=== PATIENT | male | born 1970 | race Caucasian/White ===

== ENCOUNTER 2017-06-07 10:16 | Day surgery (SDC) | payer BC ==
[~2017-06-07 10:16] MED LIST: Bupivacaine 0.25%/EPINEPHrine 1:200,000 10 ML SDV ONE; Lactated Ringers 1,000 ML IV SCH; ceFAZolin 2 GM in Premix Bag 1 BAG IV ONE
[2017-06-07] MEDS ORDERED: Ondansetron 4 MG/2 ML SDV ONE (11:29)
[2017-06-07] MEDS ORDERED: Succinylcholine/Normal Saline 200 MG/10 ML Syringe ONE (11:29)
[2017-06-07] MEDS ORDERED: Midazolam 1 MG/ML 2 ML SDV ONE (11:29)
[2017-06-07] MEDS ORDERED: Propofol 200 MG/20 ML SDV ONE (11:29)
[2017-06-07] MEDS ORDERED: fentaNYL 250 MCG/5 ML SDV ONE (11:29)
[2017-06-07] MEDS ORDERED: Lidocaine 2% 5 ML SDV ONE (11:29)
[2017-06-07] MEDS ORDERED: Acetaminophen/oxyCODONE 325-10 MG Tab PO ONE ×2 (11:46→14:20)
--- NOTE | 2017-06-07 11:48 | PCM.PREANE ---
Preanesthetic Assessment - Anesthesia/Transfusion/Family Hx Anesthesia History: Prior Anesthesia Without Reaction Family History of Anesthesia Reaction: No Transfusion History: No Prior Transfusion(s) Intubation History: Unknown - Review of Systems General: No Symptoms Pulmonary: No Symptoms Cardiovascular: No Symptoms Gastrointestinal: No Symptoms Neurological: No Symptoms Other: Reports: None - Physical Assessment O2 Sat by Pulse Oximetry: 99 Respiratory Rate: 16 Vital Signs: Last Vital Signs Temp 36.5 C 06/07/17 10:48 Pulse 84 06/07/17 10:48 Resp 16 06/07/17 10:48 BP 126/70 06/07/17 10:48 Pulse Ox 99 06/07/17 10:48 Height: 1.83 m Weight: 129.727 kg ASA Class: 2 Mental Status: Alert & Oriented x3 Airway Class: Mallampati = 2 Dentition: Reports: Normal Dentition, Broken Tooth/Teeth (small chip front upper tooth) Thyro-Mental Finger Breadths: 3 Mouth Opening Finger Breadths: 3 ROM/Head Extension: Full Lungs: Clear to Auscultation, Normal Respiratory Effort Cardiovascular: Regular Rate, Regular Rhythm - Allergies Allergies/Adverse Reactions: Allergies Allergy/AdvReac Type Severity Reaction Status Date / Time No Known Allergies Allergy Verified 12/10/15 11:22 - Blood Blood Available: No - Anesthesia Plan Pre-Op Medication Ordered: None - Acknowledgements Anesthesia Type Planned: General Anesthesia Pt an Appropriate Candidate for the Planned Anesthesia: Yes Alternatives and Risks of Anesthesia Discussed w Pt/Guardian: Yes Pt/Guardian Understands and Agrees with Anesthesia Plan: Yes PreAnesthesia Questionnaire - Past Health History Medical/Surgical History: Denies Medical/Surgical History HEENT History: Reports: None Cardiovascular History: Reports: None Respiratory History: Reports: None Gastrointestinal History: Reports: GERD Other Gastrointestinal History: hx biliary pancreatitis, pancreas divisum Genitourinary History: Reports: None Musculoskeletal History: Reports: Fracture Neurological History: Reports: None, Other (See Below) (h/o migranes) Psychiatric History: Reports: None Endocrine/Metabolic History: Reports: Obesity/BMI 30+ Hematologic History: Reports: None Immunologic History: Reports: None Oncologic (Cancer) History: Reports: None Dermatologic History: Reports: None - Infectious Disease History Infectious Disease History: Reports: Chicken Pox - Past Surgical History Head Surgeries/Procedures: Reports: None HEENT Surgical History: Reports: Oral Surgery GI Surgical History: Reports: Appendectomy, Cholecystectomy Male Surgical History: Reports: Vasectomy Musculoskeletal Surgical History: Reports: Other (See Below) Other Musculoskeletal Surgeries/Procedures:: Left arm fx with surgical repair - SUBSTANCE USE Smoking Status *Q: Former Smoker (quit 08/20) Tobacco Use Within Last Twelve Months: Cigarettes Second Hand Smoke Exposure: Yes Recreational Drug Use History: No - HOME MEDS Home Medications: Home Meds Omeprazole 40 mg PO DAILY 06/04/17 [History] - CURRENT (IN HOUSE) MEDS Current Meds: Current Medications Lactated Ringer's (Ringers, Lactated) 1,000 mls @ 125 mls/hr IV ASDIRECTED LESLIE Last Admin: 06/07/17 10:53 Dose: 125 mls/hr Discontinued Medications Bupivacaine HCl/Epinephrine Bitart (Marcaine 0.25%/Epinephrine 1:200,000) Confirm Administered Dose 20 ml .ROUTE .STK-MED ONE Stop: 06/07/17 07:29 Bupivacaine HCl/Epinephrine Bitart (Marcaine 0.25%/Epinephrine 1:200,000) Confirm Administered Dose 10 ml .ROUTE .STK-MED ONE Stop: 06/07/17 07:30 Fentanyl (Sublimaze) Confirm Administered Dose 250 mcg .ROUTE .STK-MED ONE Stop: 06/07/17 11:30 Cefazolin Sodium/Dextrose 2 gm (/ Premix) 50 mls @ 100 mls/hr IV ONETIME ONE Stop: 06/07/17 05:29 Lidocaine (Xylocaine-Mpf 2%) Confirm Administered Dose 5 ml .ROUTE .STK-MED ONE Stop: 06/07/17 11:30 Midazolam HCl (Versed 1 Mg/Ml) Confirm Administered Dose 2 mg .ROUTE .STK-MED ONE Stop: 06/07/17 11:30 Ondansetron HCl (Zofran) Confirm Administered Dose 4 mg .ROUTE .STK-MED ONE Stop: 06/07/17 11:30 Propofol (Diprivan 20 Ml) Confirm Administered Dose 200 mg .ROUTE .STK-MED ONE Stop: 06/07/17 11:30 Rocuronium [place] (Zemuron) Confirm Administered Dose 50 mg .ROUTE .STK-MED ONE Stop: 06/07/17 11:30 Succinylcholine Chloride (Succinylcholine In Ns Pf) Confirm Administered Dose 200 mg .ROUTE .STK-MED ONE Stop: 06/07/17 11:30
[2017-06-07] MEDS ORDERED: Octyl 2-Cyanoacrylate 1 Tube ONE (11:51)
[2017-06-07] MEDS ORDERED: HYDROmorphone 2 MG/ML Syringe ONE (12:21)
[2017-06-07] MEDS ORDERED: Dexamethasone 4 MG/ML 5 ML MDV ONE (12:26)
[2017-06-07] MEDS ORDERED: Albuterol 6.7 GM Inhaler INH ONE (12:40)
[2017-06-07] MEDS ORDERED: Neostigmine Methylsulfate 1 MG/ML 5 ML Syringe ONE (12:41)
--- NOTE | 2017-06-07 13:30 | PCM.OPNOTE ---
- General Post-Op/Procedure Note Date of Surgery/Procedure: 06/07/17 Operative Procedure(s): incarcerated incisional hernia rep, no mesh Findings: fascia defect of 2 cm, repair primary, no mesh used; [id number] Pre Op Diagnosis: incarcerated incisional hernia Post-Op Diagnosis: Same Anesthesia Technique: General ET Tube Primary Surgeon: Krzysztof Vaz Pathology: sent Complications: None Condition: Good
[2017-06-07 14:49] VITALS: BP 128/74
--- NOTE | 2017-06-07 15:37 | OR ---
SURGEON: Krzysztof Vaz MD DATE OF PROCEDURE: 06/07/2017 PREOPERATIVE DIAGNOSIS: Incarcerated incisional hernia. POSTOPERATIVE DIAGNOSIS: Incarcerated incisional hernia. PROCEDURE PERFORMED: Hernia repair. COMPLICATIONS: None. FINDINGS: A small hernia with a large sac and fascial defect is 2 cm and repair primary, no mesh used. DESCRIPTION OF PROCEDURE: The patient was taken to the operating room and placed in supine position. Upon induction of general endotracheal anesthesia, the patient's abdomen was prepped and draped in a sterile fashion. Time-out had been called, patient identified, procedure identified, antibiotic identified. Procedure was then started. Ioban was applied prophylactically. After assessment of appropriate landmark, a vertical incision beveled to the right of the umbilicus was made and carried deep down to expose the hernia sac and this was opened there was omentum pushed back in the peritoneal cavity, measured the dimension of the fascial defect as 2 cm, and considering the patient little bit on the heavy side, but he has very good fascia decided not to use mesh and closed primarily using 0 Ethibond, simple interrupted and followed with irrigation. Hemostasis was achieved by use of electrocautery, and the skin was approximated by use of 4-0 Monocryl and followed with Dermabond. The patient was awakened, extubated, and transferred to recovery room in hemodynamically stable condition. The patient tolerated the procedure well. There were no intraoperative complications. Dr. Vaz was present throughout the whole procedure. Abdominal binder was applied prior to moved to recovery room and wake up slowly. VIVIAN / BREEZY /[id number] DALIA
== END 2017-06-07 15:23 | disposition home or self-care (01) ==
LOC: MW.SDS 10:16
PROVIDERS: ATTEND Surgery
PROC: 0WQF0ZZ Repair Abdominal Wall, Open Approach (ICD-10-PCS; principal; 2017-06-07)
DX: K43.0 Incisional hernia with obstruction, without gangrene (principal); G43.909 Migraine, unspecified, not intractable, without status migrainosus; E66.9 Obesity, unspecified; K21.9 Gastro-esophageal reflux disease without esophagitis; Z87.891 Personal history of nicotine dependence; Z79.899 Other long term (current) drug therapy; Z98.52 Vasectomy status; Z90.49 Acquired absence of other specified parts of digestive tract; Z98.890 Other specified postprocedural states; Z68.36 Body mass index [BMI] 36.0-36.9, adult
CPT/HCPCS: 49561; A9270; J1100; J1170; J2250; J2405; J3010; J7120; 00832; 88302; J2704

== ENCOUNTER 2018-07-27 09:21 | Emergency (ER) | payer BC ==
--- NOTE | 2018-07-27 09:34 | EDM.PDOC ---
ED HPI GENERAL MEDICAL PROBLEM - General Chief Complaint: ENT Problem Stated Complaint: SINUS INFECTION, JAW PAIN Time Seen by Provider: 07/27/18 09:33 Source of Information: Reports: Patient History Limitations: Reports: No Limitations - History of Present Illness INITIAL COMMENTS - FREE TEXT/NARRATIVE: HISTORY AND PHYSICAL: History of present illness: 48-year-old male presenting to emergency department with chief complaint of left upper jaw pain 2 days. Patient states that ever since he had a root canal to his left upper tooth he has had problems with sinus issues. States that whenever he gets a sinus infection he begins to have left maxillary sinus pain secondary to what he describes as a cyst pocket from the root canal. Approximately 2 weeks ago he began to have some sinus congestion. He's been using [id number] decongestants as well as Afrin occasionally. Approximately 2 days ago sinus congestion worsened and he began to have left upper maxillary/jaw pain. He denied any associated fever, chills, nausea, vomiting, abdominal pain, or diarrhea. Otherwise he is generally healthy. Current pain is 8 out of 10. Currently denies any chest pain, palpitations, shortness of breath, syncopal episodes, or focal neurologic deficits. On exam there is a dental crown on tooth #14 with surrounding gum erythema and mild swelling. Patient is tender to palpation along the left maxillary sinus as well as TMJ area. No mastoid or numbness. No difficulty with speech or breathing. Review of systems: As per history of present illness and below otherwise all systems reviewed and negative. Past medical history: As per history of present illness and as reviewed below otherwise noncontributory. Surgical history: As per history of present illness and as reviewed below otherwise noncontributory. Social history: No reported history of drug or alcohol abuse. Family history: As per history of present illness and as reviewed below otherwise noncontributory. Physical exam: See above H&P HEENT: Atraumatic, normocephalic, pupils reactive, negative for conjunctival pallor or scleral icterus, mucous membranes moist, throat clear, neck supple, nontender, trachea midline. Lungs: Clear to auscultation, breath sounds equal bilaterally, chest nontender. Heart: S1S2, regular, negative for clicks, rubs, or JVD. Abdomen: Soft, nondistended, nontender. Negative for masses or hepatosplenomegaly. Negative for costovertebral tenderness. Pelvis: Stable nontender. Genitourinary: Deferred. Rectal: Deferred. Extremities: Atraumatic, negative for cords or calf pain. Neurovascular unremarkable. Neuro: Awake, alert, oriented. Cranial nerves II through XII unremarkable. Cerebellum unremarkable. Motor and sensory unremarkable throughout. Exam nonfocal. Diagnostics: [] Therapeutics: Toradol 60 mg IM 1, Augmentin 875 mg by mouth twice a day 10 days, dental balls Impression: Dental abscess Maxillary pain Plan: Patient was much improved after Toradol and was given a prescription for antibiotic, Augmentin. He was also given dental balls and instructed to follow- up with his dentist. For his sinus congestion he was instructed to use Flonase and Afrin maximum 4 days at length with also use of Missy pot. Patient was discharged in good condition with instructions to return to emergency department if any new or worsening symptoms. Definitive disposition and diagnosis as appropriate pending reevaluation and review of above. - Related Data Allergies Allergy/AdvReac Type Severity Reaction Status Date / Time No Known Allergies Allergy Verified 12/10/15 11:22 Home Meds: Home Meds Omeprazole 40 mg PO DAILY PRN 06/04/17 [History] Past Medical History - Past Health History Medical/Surgical History: Denies Medical/Surgical History HEENT History: Reports: None Cardiovascular History: Reports: None Respiratory History: Reports: None Gastrointestinal History: Reports: GERD Other Gastrointestinal History: hx biliary pancreatitis, pancreas divisum Genitourinary History: Reports: None Musculoskeletal History: Reports: Fracture Neurological History: Reports: None, Other (See Below) (h/o migranes) Psychiatric History: Reports: None Endocrine/Metabolic History: Reports: Obesity/BMI 30+ Hematologic History: Reports: None Immunologic History: Reports: None Oncologic (Cancer) History: Reports: None Dermatologic History: Reports: None - Infectious Disease History Infectious Disease History: Reports: Chicken Pox - Past Surgical History Head Surgeries/Procedures: Reports: None HEENT Surgical History: Reports: Oral Surgery GI Surgical History: Reports: Appendectomy, Cholecystectomy Male Surgical History: Reports: Vasectomy Musculoskeletal Surgical History: Reports: Other (See Below) Other Musculoskeletal Surgeries/Procedures:: Left arm fx with surgical repair Social & Family History - Family History Family Medical History: Noncontributory - Caffeine Use Caffeine Use: Reports: Soda Other Caffeine Use: Diet Coke ED [facility] GENERAL - Review of Systems Review Of Systems: ROS reveals no pertinent complaints other than HPI. ED EXAM, GENERAL - Physical Exam Exam: See Below Course - Vital Signs Last Recorded V/S: Last Vital Signs Temp 97.0 F 07/27/18 09:34 Pulse 69 07/27/18 09:34 Resp 18 07/27/18 09:34 BP 172/97 H 07/27/18 09:34 Pulse Ox 97 07/27/18 09:34 - Orders/Labs/Meds Meds: Medications Discontinued Medications Generic Name Dose Route Start Last Admin Trade Name Fremary lou PRN Reason Stop Dose Admin Benzocaine 2 each 07/27/18 09:50 Hurricaine One 20% MUCMEM 07/27/18 09:51 ONETIME ONE Ketorolac Tromethamine 60 mg 07/27/18 09:50 Toradol IM 07/27/18 09:51 ONETIME ONE Lidocaine HCl 15 ml 07/27/18 09:50 Xylocaine 2% Viscous PO 07/27/18 09:51 ONETIME ONE Departure - Departure Time of Disposition: 10:07 Disposition: Home, Self-Care 01 Condition: Good Clinical Impression: Dental abscess, Sinus pain - Discharge Information Referrals: PCP,None [Primary Care Provider] - Forms: ED Department Discharge Additional Instructions: My general discharge The following information is given to patients seen in the emergency department who are being discharged to home. This information is to outline your options for follow-up care. We provide all patients seen in our emergency department with a follow-up referral. The need for follow-up, as well as the timing and circumstances, are variable depending upon the specifics of your emergency department visit. If you don't have a primary care physician on staff, we will provide you with a referral. We always advise you to contact your personal physician following an emergency department visit to inform them of the circumstance of the visit and for follow-up with them and/or the need for any referrals to a consulting specialist. The emergency department will also refer you to a specialist when appropriate. This referral assures that you have the opportunity for follow-up care with a specialist. All of these measure are taken in an effort to provide you with optimal care, which includes your follow-up. Under all circumstances we always encourage you to contact your private physician who remains a resource for coordinating your care. When calling for follow-up care, please make the office aware that this follow-up is from your recent emergency room visit. If for any reason you are refused follow-up, please contact the [facility] Emergency Department at and asked to speak to the emergency department charge nurse. [facility] [address] [place] [id number] [facility] [address] [place] [id number] Please follow-up with your dentist as you have been doing. Take medication as prescribed. Return to emergency department if any new or worsening symptoms.
[2018-07-27 09:35] VITALS: BP 172/97
[2018-07-27] MEDS ORDERED: Lidocaine 2% Viscous Solution 15 ML Cup PO ONE (09:50)
[2018-07-27] MEDS ORDERED: Benzocaine 20% Topical Spray UD MUCMEM ONE (09:50)
[2018-07-27] MEDS ORDERED: Ketorolac 60 MG/2 ML SDV IM ONE (09:50)
== END 2018-07-27 10:29 | disposition home or self-care (01) ==
LOC: MW.ED 09:21
DX: K04.7 Periapical abscess without sinus (principal); K21.9 Gastro-esophageal reflux disease without esophagitis; Z79.899 Other long term (current) drug therapy
CPT/HCPCS: 96372; 99282; A9270; J1885

== ENCOUNTER 2019-11-02 07:05 | Emergency (ER) | payer BC ==
[2019-11-02] MEDS ORDERED: Ibuprofen 800 MG Tab PO ONE (07:43)
--- NOTE | 2019-11-02 07:47 | EDM.PDOC ---
ED HPI GENERAL MEDICAL PROBLEM - General Chief Complaint: ENT Problem Stated Complaint: SORE THROAT Time Seen by Provider: 11/02/19 07:45 - History of Present Illness INITIAL COMMENTS - FREE TEXT/NARRATIVE: HPI 49-year-old obese male presents for evaluation of ~3 days of scratchy sore throat, infrequent, mild nonproductive cough, and mild R>L ear discomfort. No headaches, changes in vision or hearing, neck stiffness, difficulty swallowing, fevers, chills, has been taking OTC medications without adequate relief. M/S/F/SocHx notable for: please see HPI; remainder reviewed with patient and in chart. ROS: Negative constitutional, eye, cardiovascular, pulmonary, GI, , MSK, skin , neurologic, psychiatric, endocrine unless noted in the HPI. Exam HR 110, RR 16, BP 155/96, T 36.1C, SaO2 96% on room air. Gen: Pleasant, non-toxic appearing, resting comfortably. HEENT: Normocephalic, atraumatic. * Ears - TMs with scant serous effusions bilaterally, bilateral external auditory canals without erythema, inflammation, or swelling, bilateral mastoids nontender without overlying erythema, swelling, or warmth. * Eyes - Bilateral eyes without injection, swelling, or discharge, no proptosis or periorbital erythema, swelling, warmth, or tenderness. * Mouth - Anterior oropharynx with MMM, no lesions appreciated, floor of the mouth is soft and without swelling. Posterior oropharynx without swelling, exudate, erythema, lesions, or post-nasal drip, uvula midline. * Nose - Nares without crusting or discharge. * Neck - Neck supple without posterior or anterior cervical chain lymphadenopathy bilaterally. Resp: Clear to auscultation bilaterally, normal work of breathing without accessory muscle usage. Card: Regular rate and rhythm with no murmurs, rubs or gallops. Extremities warm and well perfused. GI: Non-tender to palpation throughout all quadrants, no masses or organomegaly appreciated. : Deferred MSK: No visible deformities, strength and tone without visually appreciable deficit. Neuro: alert and oriented 3, no facial asymmetry, vision and hearing WNL. Heme/Lymph: Deferred Skin: Normal color with no visible lesions (other than noted above). Psych: Mood and affect appropriate. Labs / Imaging (pertinent): rapid strep negative. MDM Previous chart, nursing note, labs, imaging, and vitals reviewed. A: 49-year-old obese male presents for evaluation of ~3 days of scratchy sore throat, infrequent, mild nonproductive cough, and mild R>L ear discomfort. DDx: pharyngitis (HSV vs viral NOS vs GAS vs gonoccocal vs bacterial NOS)], EBV , HIV, candidiasis, sinusitis (bacterial, viral)[, peritonsillar cellulitis, BANQUET CHEF , RPA, Claude's angina, epiglottitis. Evaluation: [overall symptom constellation is most strongly consistent with a viral upper respiratory tract infection,, rapid strep negative, no identifiable sexual history features for gonococcal pharyngitis, oral mucosa without lesions consistent with HSV or candidiasis, doubt bacterial sinusitis given duration of symptoms, low suspicion for peritonsillar cellulitis or abscess given the absence of asymmetric swelling or uvular deviation, RPA is unlikely as the patient can comfortably flex and extend their neck and swallow without difficulty. As phonation is intact and breathing is unlabored doubt epiglottitis. The floor of the mouth is without evidence of Claude's angina. Lemierre's disease was considered but as the patient does not have signs of BANQUET CHEF or sepsis, further evaluation was not indicated. ED Course: No clinically significant changes. Patient given 10 mg dexamethasone PO and ibuprofen 800 mg. Disposition: Discharge with return to care as needed. Return to care indications provided. Impression: Pharyngitis (please reference below for remainder of encounter information) - Related Data Allergies Allergy/AdvReac Type Severity Reaction Status Date / Time No Known Allergies Allergy Verified 11/02/19 07:41 Home Meds: Home Meds Omeprazole 40 mg PO DAILY PRN 06/04/17 [History] Past Medical History - Past Health History Medical/Surgical History: Denies Medical/Surgical History HEENT History: Reports: None Cardiovascular History: Reports: None Respiratory History: Reports: None Gastrointestinal History: Reports: GERD Other Gastrointestinal History: hx biliary pancreatitis, pancreas divisum Genitourinary History: Reports: None Musculoskeletal History: Reports: Fracture Neurological History: Reports: None, Other (See Below) Psychiatric History: Reports: None Endocrine/Metabolic History: Reports: Obesity/BMI 30+ Hematologic History: Reports: None Immunologic History: Reports: None Oncologic (Cancer) History: Reports: None Dermatologic History: Reports: None - Infectious Disease History Infectious Disease History: Reports: Chicken Pox - Past Surgical History Head Surgeries/Procedures: Reports: None HEENT Surgical History: Reports: Oral Surgery GI Surgical History: Reports: Appendectomy, Cholecystectomy Male Surgical History: Reports: Vasectomy Musculoskeletal Surgical History: Reports: Other (See Below) Other Musculoskeletal Surgeries/Procedures:: Left arm fx with surgical repair Social & Family History - Family History Family Medical History: Noncontributory - Tobacco Use Smoking Status *Q: Never Smoker - Caffeine Use Caffeine Use: Reports: None Other Caffeine Use: Diet Coke - Recreational Drug Use Recreational Drug Use: No ED ROS GENERAL - Review of Systems Review Of Systems: See Below ED EXAM GENERAL W FULL EYE - Physical Exam Exam: See Below Course - Vital Signs Last Recorded V/S: Last Vital Signs Temp 36.1 C 11/02/19 07:15 Pulse 110 H 11/02/19 07:15 Resp 16 11/02/19 07:15 BP 155/96 H 11/02/19 07:15 Pulse Ox 96 11/02/19 07:15 - Orders/Labs/Meds Orders: Active Orders 24 hr Category Date Time Status Communication Order [RC] STAT Care 11/02/19 07:43 Ordered CULTURE STREP A CONFIRMATION [] Stat Lab 11/02/19 07:13 Results STREP SCRN A RAPID W CULT CONF [] Stat Lab 11/02/19 07:13 Results dexAMETHasone Med 11/02/19 07:45 Once 10 mg PO ONETIME ONE Medication Orders Dexamethasone (Dexamethasone) 10 mg PO ONETIME ONE Stop: 11/02/19 07:46 Meds: Medications Generic Name Dose Route Start Last Admin Trade Name Freq PRN Reason Stop Dose Admin Dexamethasone 10 mg 11/02/19 07:45 Dexamethasone PO 11/02/19 07:46 ONETIME ONE Discontinued Medications Generic Name Dose Route Start Last Admin Trade Name Freq PRN Reason Stop Dose Admin Ibuprofen 800 mg 11/02/19 07:43 Motrin PO 11/02/19 07:44 ONETIME ONE Departure - Departure Time of Disposition: 07:46 Disposition: Home, Self-Care 01 Clinical Impression: Pharyngitis - Discharge Information Referrals: PCP,None [Primary Care Provider] - Additional Instructions: You were in seen in the [facility] Emergency Department for evaluation of sore throat, ear discomfort, and an infrequent cough. Your believed to have a upper respiratory tract infection, this is likely viral. Your strep screen was negative. Please read and follow all of the instructions below. Please follow up with your primary care physician within 48 hours for repeat evaluation of your asymptomatic hypertension. When calling for follow-up care, please make the office aware that this follow-up is from your recent emergency room visit. If for any reason you are refused follow-up, please contact the [facility] Emergency Department at and asked to speak to the emergency department charge nurse. Your care today was limited to identifying and treating emergent medical problems only. Many people have subtle differences in their test results that require follow up with their outpatient physician(s) to correctly determine if this represents a normal variation or concerning abnormality with respect to your specific health. The care given to you today was limited to identifying and treating emergent medical problems - you need to request a copy of all of your medical records from today's visit and follow up with your outpatient physician(s) to review both today's visit and your overall health. If you have any new symptoms or if you are at all concerned about your health please return immediately to the emergency department. Prescriptions: If you are uninsured or have financial difficulties with filling your prescription(s), you may consider using a free pharmacy discount service such as [employer] ([employer]) or [employer] ([employer]). These services allow you to search for a medication on your phone (or computer) and obtain a coupon that usually has a significant discount from the list piedra at a pharmacy. Your physician as well as [facility] does not have a financial relationship with either of these services. You may also wish to speak with your physician to determine if lower cost prescriptions are possible. Obtaining primary care: 1. [facility] provides pediatrics (children), family medicine (children, adults, and some obstetrical care), and internal medicine (adults). Further specialty care is also available. Same day appointments are available. They may be contacted at [phone] and are open Sunday through Sunday 8 AM to 5 PM[address] [facility] are located at [facility], [address], [place] [address]. 2. [facility] offers family medicine, internal medicine, women health, and further specialty care. [facility] may be contacted at [phone]. [facility] [address] [address]. 3. If you have health insurance, please also contact your insurer for a list of accepting providers under your policy, you may contact these providers for further health care. Occupational health: Work related injuries may consider following up with [facility], . Occupational health services are located at [address] [place] [address] and are open Sunday through Sunday from 7: 30 am to 5:00 pm. Obstetrical and Gynecological Care: [facility], , Sunday through Sunday 8 AM to 5 PM. [address] [place] [address]. Eyecare: If you have an eye injury you should follow up with your safety clothing and equipment developer or with [facility], at [phone] or [phone] , they are located at [address] [place] [address]. Pharyngitis You have a severe sore throat caused by a viral or bacterial infection. These infections usually get better in 4-7 days with supportive care. You may use the following to reduce your pain: Ibuprofen 600 mg every 6-8 hours. Acetaminophen 1,000 mg every 6 hours. Over the counter throat lozenges. Warm liquids with honey may help. Please return to the emergency department if you develop any of the following: Difficulty swallowing One tonsil that is much larger than the other. Pain on flexing your neck or difficulty bending your neck Swelling below your tongue Rash Red or brown urine High fevers or chills If you are otherwise concerned about your health Please call your primary care physician if you are not feeling much better in 4 days. You make take over the counter Acetaminophen (Tylenol) and Ibuprofen (Motrin or Aleve) as directed below for relief of pain. Take 600 mg of ibuprofen (three 200 mg tablets) with a glass of water every 6-8 hours as needed for pain or fever. Do not take if you have ulcers, GI bleeding, are , or are allergic to ibuprofen. Take 1,000 mg of acetaminophen (two 500 mg tablets) with a glass of water every 6-8 hours as needed for pain. Do not take if you are allergic to acetaminophen. If you have liver disease, please reduce your dose to a maximum of 2,000 mg per day. You can take these medications at the same time or on separate schedules. Do not take for more than 10 days. Do not take with alcohol or other acetaminophen containing medications. This medication may cause a mildly upset stomach, if so take it with a small snack. Stop taking it if you have persistent abdominal pain, heartburn, or any stomach pain. Do not take this medication if you have known ulcers. Please read the warnings at the end of this document regarding these medications. IBUPROFEN WARNING: This drug may infrequently cause serious (rarely fatal) bleeding from the stomach or intestines. Also, related drugs rarely have caused blood clots to form, resulting in heart attacks and strokes. This medication might also rarely cause similar problems. Talk to your doctor or pharmacist about the benefits and risks of treatment, as well as other possible medication choices. If you notice any of the following rare but very serious side effects, stop taking ibuprofen and seek immediate medical attention: black stools, persistent stomach/abdominal pain, vomit that looks like coffee grounds, chest pain, weakness on one side of the body, sudden vision changes, slurred speech. IBUPROFEN SIDE EFFECTS: Upset stomach, nausea, vomiting, heartburn, headache, diarrhea, constipation, drowsiness, and dizziness may occur. If any of these effects persist or worsen, notify your doctor or pharmacist promptly. If your doctor has directed you to use this medication, remember that he or she has judged that the benefit to you is greater than the risk of side effects. Many people using this medication do not have serious side effects. Tell your doctor immediately if any of these serious side effects occur: stomach pain, swelling of the hands or feet, sudden or unexplained weight gain, ringing in the ears ( tinnitus). Tell your doctor immediately if any of these unlikely but serious side effects occur: vision changes, rapid or pounding heartbeat, easy bruising or bleeding, difficult/painful swallowing. Tell your doctor immediately if any of these highly unlikely but very serious side effects occur: change in amount of urine, severe headache, very stiff neck, mental/mood changes, persistent sore throat or fever. This drug may rarely cause serious (possibly fatal) liver disease. If you notice any of the following highly unlikely but very serious side effects, stop taking ibuprofen and consult your doctor or pharmacist immediately: yellowing eyes and skin, dark urine, unusual/extreme tiredness. An allergic reaction to this drug is unlikely, but seek immediate medical attention if it occurs. Symptoms of an allergic reaction include: rash, itching/ swelling (especially of the face/tongue/throat), severe dizziness, trouble breathing. This is not a complete list of possible side effects. ACETAMINOPHEN SIDE EFFECTS: This drug usually has no side effects. If you do not have liver problems, the maximum dose of acetaminophen for adults is 4 grams per day (4000 milligrams). Taking more than the maximum daily amount may cause serious (possibly fatal) liver damage. Get medical help right away if you have any of the following symptoms of liver damage: persistent nausea/vomiting, extreme tiredness, stomach/abdominal pain, yellowing eyes/skin, dark urine. If you have liver problems, consult your doctor or pharmacist for a safe dosage of this medication. A very serious allergic reaction to this drug is rare. However , get medical help right away if you notice any symptoms of a serious allergic reaction, including: rash, itching/swelling (especially of the face/tongue/ throat), severe dizziness, trouble breathing. This is not a complete list of possible side effects. If you notice other effects not listed above, contact your doctor or pharmacist. DRUG INTERACTIONS: Your healthcare professionals (e.g., doctor or pharmacist) may already be aware of any possible drug interactions and may be monitoring you for it. Do not start, stop or change the dosage of any medicine before checking with them first. This drug should not be used with the following medications because very serious interactions may occur: cidofovir, ketorolac. If you are currently using any of these medications listed above, tell your doctor or pharmacist before starting ibuprofen. Before using this medication, tell your doctor or pharmacist of all prescription and nonprescription/herbal products you may use, especially of: anti-platelet drugs (e.g., cilostazol, clopidogrel), oral bisphosphonates (e.g., alendronate), other medications for arthritis (e.g., aspirin, methotrexate), "blood thinners" (e.g., enoxaparin, heparin, warfarin), corticosteroids (e.g., prednisone), cyclosporine, desmopressin, high blood pressure drugs (including MARIO inhibitors such as captopril, angiotensin II receptor antagonists such as losartan, and beta- blockers such as metoprolol), lithium, pemetrexed, "water pills" (diuretics such as furosemide, hydrochlorothiazide, triamterene). Check all prescription and nonprescription medicine labels carefully for other pain/fever drugs ( NSAIDs such as aspirin, celecoxib, naproxen). These drugs are similar to ibuprofen, so taking one of these drugs while also taking ibuprofen may increase your risk of side effects. Consult your doctor or pharmacist for more details. However, if your doctor has prescribed low doses of aspirin to prevent heart attack or stroke (usually at dosages of 81-325 milligrams a day), you should continue to take the aspirin. Daily use of ibuprofen may decrease aspirin 's ability to prevent heart attack/stroke. Talk to your doctor about using a different medication (e.g., acetaminophen) to treat pain/fever. If you must take ibuprofen, talk to your doctor about possibly taking immediate-release aspirin (not enteric-coated) while also taking the ibuprofen dose apart from your aspirin dose. Do not increase your daily dose of aspirin or change the way you take aspirin/other medications without your doctor's approval. This document does not contain all possible interactions. Therefore, before using this product, tell your doctor or pharmacist of all the products you use. Keep a list of all your medications with you, and share the list with your doctor and pharmacist. High Blood Pressure (Hypertension) When you were in the emergency department you had an abnormally high blood pressure. High blood pressure can be without symptoms. However high blood pressure can lead to many medical problems including kidney disease, strokes, and heart attacks. Your blood pressure may have been elevated due to pain or the stress of being in the emergency department, however half of people with an elevated blood pressure in the emergency department have intermodal truck driver problems with high blood pressure. Please see your primary care physician in 2-3 days for a repeat check of your blood pressure. This may help prevent many health serious problems in the future. Please return to the emergency department if you develop any of the following: chest pain, shortness of breath, new or severe headache, changes in vision or hearing, weakness, or if you are otherwise concerned about your health. Sepsis Event Note - Evaluation Sepsis Screening Result: No Definite Risk - Focused Exam Vital Signs: Vital Signs Temp Pulse Resp BP Pulse Ox 11/02/19 07:15 36.1 C 110 H 16 155/96 H 96 Date Exam was Performed: 11/02/19 Time Exam was Performed: 07:45 - My Orders Last 24 Hours: My Active Orders 11/02/19 07:13 CULTURE STREP A CONFIRMATION [RM] Stat STREP SCRN A RAPID W CULT CONF [RM] Stat 11/02/19 07:43 Communication Order [RC] STAT 11/02/19 07:45 dexAMETHasone 10 mg PO ONETIME ONE - Assessment/Plan Last 24 Hours: My Active Orders 11/02/19 07:13 CULTURE STREP A CONFIRMATION [RM] Stat STREP SCRN A RAPID W CULT CONF [RM] Stat 11/02/19 07:43 Communication Order [RC] STAT 11/02/19 07:45 dexAMETHasone 10 mg PO ONETIME ONE
[2019-11-02] MEDS ORDERED: Dexamethasone 4 MG Tab ONE (07:48)
[2019-11-02] MEDS ORDERED: Dexamethasone 4 MG Tab PO ONE (07:52)
[2019-11-02 07:54] VITALS: BP 143/83; PULSE 104
== END 2019-11-02 07:59 | disposition home or self-care (01) ==
LOC: MW.ED 07:05
DX: J02.9 Acute pharyngitis, unspecified (principal); E66.9 Obesity, unspecified; Z68.38 Body mass index [BMI] 38.0-38.9, adult
CPT/HCPCS: 87081; 87880; 99283; A9270; J8540

== ENCOUNTER 2021-09-18 12:04 | Emergency (ER) | payer BC ==
[2021-09-18 14:43] LABS: CORONAVIRUS COVID-19 NAA NEGATIVE (NEGATIVE); INFLUENZA A NAA NEGATIVE (NEGATIVE); INFLUENZA B NAA NEGATIVE (NEGATIVE)
--- NOTE | 2021-09-18 15:35 | CR ---
Indication: Cough. Technique: PA and lateral views the chest. Comparison: None Findings: A right upper lobe infiltrate is identified. The heart is normal in size. The lungs are hyperinflated. No pleural effusion or pneumothorax is identified. Impression: Right upper lobe infiltrate Dictated by Tana Simpson MD @ 09/18/2021 3:33:54 PM (Electronically Signed)
[2021-09-18] MEDS ORDERED: Azithromycin 250 MG Tab PO STA (15:38)
--- NOTE | 2021-09-18 15:42 | EDM.PDOC ---
ED HPI GENERAL MEDICAL PROBLEM - General Chief Complaint: ENT Problem Stated Complaint: sinus pain for 6 weeks Time Seen by Provider: 09/18/21 15:20 Source of Information: Reports: Patient History Limitations: Reports: No Limitations - History of Present Illness INITIAL COMMENTS - FREE TEXT/NARRATIVE: Patient is a 51-year-old male brought in today for sinus pain for the past 6 weeks he states that he regularly gets sinus infection. He also reports a cough as well but nonproductive and has some chest tightness but not made worse or better with any events nonradiating. Patient denies any leg swelling or current shortness of breath. - Related Data Allergies Allergy/AdvReac Type Severity Reaction Status Date / Time No Known Allergies Allergy Verified 09/18/21 15:24 Home Meds: Home Meds Omeprazole 40 mg PO DAILY PRN 06/04/17 [History] Past Medical History - Past Health History Medical/Surgical History: Denies Medical/Surgical History HEENT History: Reports: None Cardiovascular History: Reports: None Respiratory History: Reports: None Gastrointestinal History: Reports: GERD Other Gastrointestinal History: hx biliary pancreatitis, pancreas divisum Genitourinary History: Reports: None Musculoskeletal History: Reports: Fracture Neurological History: Reports: None, Other (See Below) Psychiatric History: Reports: None Endocrine/Metabolic History: Reports: Obesity/BMI 30+ Hematologic History: Reports: None Immunologic History: Reports: None Oncologic (Cancer) History: Reports: None Dermatologic History: Reports: None - Infectious Disease History Infectious Disease History: Reports: Chicken Pox - Past Surgical History Head Surgeries/Procedures: Reports: None HEENT Surgical History: Reports: Oral Surgery GI Surgical History: Reports: Appendectomy, Cholecystectomy Male Surgical History: Reports: Vasectomy Musculoskeletal Surgical History: Reports: Other (See Below) Other Musculoskeletal Surgeries/Procedures:: Left arm fx with surgical repair Social & Family History - Family History Family Medical History: No Pertinent Family History - Tobacco Use Tobacco Use Status *Q: Never Tobacco User - Caffeine Use Caffeine Use: Reports: Soda Other Caffeine Use: Diet Coke - Recreational Drug Use Recreational Drug Use: No ED ROS GENERAL - Review of Systems Review Of Systems: See Below Constitutional: Reports: No Symptoms HEENT: Reports: Rhinitis Respiratory: Reports: Pleuritic Chest Pain Cardiovascular: Reports: No Symptoms Endocrine: Reports: No Symptoms GI/Abdominal: Reports: No Symptoms : Reports: No Symptoms Musculoskeletal: Reports: No Symptoms Skin: Reports: No Symptoms Neurological: Reports: No Symptoms Psychiatric: Reports: No Symptoms Hematologic/Lymphatic: Reports: No Symptoms Immunologic: Reports: No Symptoms ED EXAM, GENERAL - Physical Exam Exam: See Below Exam Limited By: No Limitations General Appearance: Alert, WD/WN, No Apparent Distress Eye Exam: Bilateral Eye: EOMI, PERRL Ears: Normal External Exam Nose: Normal Inspection Head: Atraumatic, Normocephalic Neck: Normal Inspection Respiratory/Chest: No Respiratory Distress, Lungs Clear, Normal Breath Sounds Cardiovascular: Normal Peripheral Pulses, Regular Rate, Rhythm GI/Abdominal: Normal Bowel Sounds, Soft, Non-Tender Extremities: Normal Inspection, Normal Range of Motion Neurological: Alert, Oriented, Normal Cognition, Normal Gait #1 Interpretation EKG Date: 09/18/21 Time: 15:48 Rhythm: Other (sinus tach) Rate (Beats/Min): 102 ST-T: Normal Course - Vital Signs Last Recorded V/S: Last Vital Signs Temp 98.2 F 09/18/21 15:24 Pulse 107 H 09/18/21 16:13 Resp 18 09/18/21 16:13 BP 123/75 09/18/21 16:13 Pulse Ox 94 L 09/18/21 16:13 - Orders/Labs/Meds Orders: Active Orders 24 hr Category Date Time Status EKG 12 Lead [EKG Documentation Completion] [RC] STAT Care 09/18/21 15:48 Active Labs: Laboratory Tests 09/18/21 09/18/21 09/18/21 Range/Units 13:48 15:57 15:57 WBC 10.22 (4.0-11.0) K/uL RBC 4.19 L (4.50-5.90) M/uL Hgb 12.7 L (13.0-17.0) g/dL Hct 38.4 (38.0-50.0) % MCV 91.6 (80.0-98.0) fL MCH 30.3 (27.0-32.0) pg MCHC 33.1 (31.0-37.0) g/dL RDW Std Deviation 40.9 (28.0-62.0) fl RDW Coeff of Neva 12 (11.0-15.0) % Plt Count 484 H (150-400) K/uL MPV 8.60 (7.40-12.00) fL Neut % (Auto) 73.4 (48.0-80.0) % Lymph % (Auto) 16.8 (16.0-40.0) % [place] % (Auto) 7.8 (0.0-15.0) % Eos % (Auto) 1.7 (0.0-7.0) % Baso % (Auto) 0.3 (0.0-1.5) % Neut # (Auto) 7.5 H (1.4-5.7) K/uL Lymph # (Auto) 1.7 (0.6-2.4) K/uL [place] # (Auto) 0.8 (0.0-0.8) K/uL Eos # (Auto) 0.2 (0.0-0.7) K/uL Baso # (Auto) 0.0 (0.0-0.1) K/uL Nucleated RBC % 0.0 /100WBC Nucleated RBCs # 0 K/uL Sodium 134 L (136-148) mmol/L Potassium 4.2 (3.5-5.1) mmol/L Chloride 98 (98-107) mmol/L Carbon Dioxide 24.9 (21.0-32.0) mmol/L BUN 9 (7.0-18.0) mg/dL Creatinine 1.2 (0.8-1.3) mg/dL Est Cr Clr Drug Dosing 79.04 mL/min Estimated GFR (MDRD) > 60.0 ml/min Glucose 100 (74-106) mg/dL Calcium 8.8 (8.5-10.1) mg/dL Total Bilirubin 0.6 (0.2-1.0) mg/dL AST 24 (15-37) IU/L ALT 36 (14-63) IU/L Alkaline Phosphatase 88 (46-116) U/L Troponin I < 0.050 (0.000-0.056) ng/mL Total Protein 8.3 H (6.4-8.2) g/dL Albumin 3.0 L (3.4-5.0) g/dL Globulin 5.3 H (2.6-4.0) g/dL Albumin/Globulin Ratio 0.6 L (0.9-1.6) Influenza Type A RNA NEGATIVE (NEGATIVE) Influenza Type B RNA NEGATIVE (NEGATIVE) SARS-CoV-2 RNA (KIERSTEN) NEGATIVE (NEGATIVE) Meds: Medications Discontinued Medications Generic Name Dose Route Start Last Admin Trade Name Dandy PRN Reason Stop Dose Admin Azithromycin 500 mg 09/18/21 15:38 09/18/21 16:12 Azithromycin 250 Mg Tab PO 09/18/21 15:39 500 mg NOW STA Administration - Re-Assessments/Exams Free Text/Narrative Re-Assessment/Exam: 09/18/21 16:42 Patient x-ray shows possible pneumonia. Patient feeling better. Patient EKG reviewed as well as negative tropes will be discharged home is been going on for 6 weeks. Departure - Departure Time of Disposition: 16:43 Disposition: Home, Self-Care 01 Condition: Good Clinical Impression: Pneumonia - Discharge Information *PRESCRIPTION DRUG MONITORING PROGRAM REVIEWED*: Not Applicable *COPY OF PRESCRIPTION DRUG MONITORING REPORT IN PATIENT JAIME: Not Applicable Referrals: PCP,None [Primary Care Provider] - Forms: ED Department Discharge Additional Instructions: You were seen today for possible sinus pain for 6 weeks and also some chest tightness. X-ray shows a possible pneumonia. We will send you home antibiotics to help out the chest tightness and also clear if you do have a sinus infection. If you have any other concerning signs or symptoms please return to ED immediately. The following information is given to patients seen in the emergency department who are being discharged to home. This information is to outline your options for follow-up care. We provide all patients seen in our emergency department with a follow-up referral. The need for follow-up, as well as the timing and circumstances, are variable depending upon the specifics of your emergency department visit. If you don't have a primary care physician on staff, we will provide you with a referral. We always advise you to contact your personal physician following an emergency department visit to inform them of the circumstance of the visit and for follow-up with them and/or the need for any referrals to a consulting specialist. The emergency department will also refer you to a specialist when appropriate. This referral assures that you have the opportunity for follow-up care with a specialist. All of these measure are taken in an effort to provide you with optimal care, which includes your follow-up. Under all circumstances we always encourage you to contact your private physician who remains a resource for coordinating your care. When calling for follow-up care, please make the office aware that this follow-up is from your recent emergency room visit. If for any reason you are refused follow-up, please contact the [facility] Emergency Department at and asked to speak to the emergency department charge nurse. Please follow up with your primary care physician. If you do not have a primary care physician, see below: [facility] [address] [place] [id number] [facility] [address] [place] [address] Sepsis Event Note (ED) - Evaluation Sepsis Screening Result: No Definite Risk - Focused Exam Vital Signs: Vital Signs Temp Pulse Resp BP Pulse Ox 09/18/21 16:13 107 H 18 123/75 94 L 09/18/21 15:24 98.2 F 102 H 18 138/76 98 - My Orders Last 24 Hours: My Active Orders 09/18/21 15:48 EKG 12 Lead [EKG Documentation Completion] [RC] STAT - Assessment/Plan Last 24 Hours: My Active Orders 09/18/21 15:48 EKG 12 Lead [EKG Documentation Completion] [RC] STAT Plan: Patient is a 51-year-old male presents today for symptoms with 6 weeks of nasal congestion and chest tightness. Denies any chest pain he says he feels like his heart from his pain his lungs take a deep breath. Denies any shortness of breath any fever chills or other complaints. Will obtain labs EKG x-ray and reassess.
[2021-09-18 16:32] LABS: BLOOD UREA NITROGEN,BUN 9 mg/dL (7.0-18.0); CARBON DIOXIDE,CO2 24.9 mmol/L (21.0-32.0); CHLORIDE,CL 98 mmol/L (98-107); GLUCOSE RANDOM 100 mg/dL (74-106); POTASSIUM,K 4.2 mmol/L (3.5-5.1); SODIUM,NA 134 mmol/L (136-148)
[2021-09-18 17:02] VITALS: BP 105/77; PULSE 105
== END 2021-09-18 17:26 | disposition home or self-care (01) ==
LOC: MW.ED 12:04
DX: J18.9 Pneumonia, unspecified organism (principal); K21.9 Gastro-esophageal reflux disease without esophagitis; R00.0 Tachycardia, unspecified; E66.9 Obesity, unspecified; Z68.41 Body mass index [BMI] 40.0-44.9, adult; Z79.899 Other long term (current) drug therapy; Z20.822 Contact with and (suspected) exposure to COVID-19
CPT/HCPCS: 0240U; 36415; 71046; 80053; 84484; 85025; 93005; 99285; A9270

== ENCOUNTER 2021-10-21 19:44 | Emergency (ER) | payer BC ==
[2021-10-21] MEDS ORDERED: Ketorolac 15 MG/ML SDV IM ONE (22:05)
[2021-10-21] MEDS ORDERED: Sodium Chloride 0.9% 2.5 ML Syringe FLUSH PRN (22:05)
[2021-10-21] MEDS ORDERED: Sodium Chloride 0.9% 10 ML Syringe FLUSH PRN (22:05)
--- NOTE | 2021-10-21 22:09 | EDM.PDOC ---
ED HPI GENERAL MEDICAL PROBLEM - General Chief Complaint: Chest Pain Stated Complaint: POSSIBLE CRACKED RIB, COUGH Time Seen by Provider: 10/21/21 21:54 - History of Present Illness INITIAL COMMENTS - FREE TEXT/NARRATIVE: History of present illness: [] Patient was diagnosed with pneumonia 09/18/2021 with cough and chest pain. It was right upper lobe pneumonia. The patient got a 4-day treatment after initial antibiotics here in the emergency department. He thinks it was azithromycin. Today the patient coughed at 6:30 PM and felt a sudden pop in the left chest and has pleuritic chest pain since. Hurts to move hurts to breathe. He is eating and drinking well. He is showing no signs of sepsis. He never had any lung problem before but he smoked for many many years stopping 6 years ago. His mother suddenly of a heart attack in her late 60s. He reports now he has dyspnea on exertion which is new since the pneumonia episode. Review of systems: As per history of present illness and below otherwise all systems reviewed and negative. Past medical history: As per history of present illness and as reviewed below otherwise noncontributory. Surgical history: As per history of present illness and as reviewed below otherwise noncontributory. Social history: No reported history of drug or alcohol abuse. Family history: As per history of present illness and as reviewed below otherwise noncontributory. Physical exam: Constitutional - well developed, well-nourished and in no acute distress HEENT - normocephalic, no evidence of trauma - external nose and mouth normal - no mass in neck and no JVD - mucosae moist EYES - full EOM, PERRL, no icterus - no evidence of inflammation, injection, or drainage Respiratory -chest wall tender in the left lateral chest wall. No respiratory distress, equal bilateral expansion, lungs clear to auscultation and no abnormal lung sounds Cardiovascular - Regular Rhythm with S1 and S2 appreciated and no murmur, gallop or rub. GI - abdomen soft without distension or organomegaly - normal bowel sounds - no guard or rebound Musculoskeletal no gross deformity of long bones or joints - no tenderness, swelling or edema Neurologic - Alert and oriented times four - CN II-XII grossly intact - motor sensory and coordination symmetrically normal Psychiatric - appropriate mood and affect with normal thought content Hematologic - No petechiae or purpura - mucosa appropriate color and sclera not pale - normal nail bed color and refill Integument - no rash or evidence of trauma - normal turgor Diagnostics: [] Therapeutics: [] Impression: [] Plan: [] Definitive disposition and diagnosis as appropriate pending reevaluation and review of above. Chest Pain Score (Numeric/FACES): 9 - Related Data Allergies Allergy/AdvReac Type Severity Reaction Status Date / Time No Known Allergies Allergy Verified 09/18/21 15:24 Home Meds: Home Meds Omeprazole 40 mg PO DAILY PRN 06/04/17 [History] Azithromycin 250 mg PO DAILY 4 Days #4 tablet 09/18/21 [Rx] Acetaminophen/oxyCODONE [Percocet 325-10 MG] 1 tab PO Q4H PRN #24 tab 10/22/21 [Rx] Past Medical History - Past Health History Medical/Surgical History: Denies Medical/Surgical History HEENT History: Reports: None Cardiovascular History: Reports: None Respiratory History: Reports: None Gastrointestinal History: Reports: GERD Other Gastrointestinal History: hx biliary pancreatitis, pancreas divisum Genitourinary History: Reports: None Musculoskeletal History: Reports: Fracture Neurological History: Reports: None, Other (See Below) Psychiatric History: Reports: None Endocrine/Metabolic History: Reports: Obesity/BMI 30+ Hematologic History: Reports: None Immunologic History: Reports: None Oncologic (Cancer) History: Reports: None Dermatologic History: Reports: None - Infectious Disease History Infectious Disease History: Reports: Chicken Pox - Past Surgical History Head Surgeries/Procedures: Reports: None HEENT Surgical History: Reports: Oral Surgery GI Surgical History: Reports: Appendectomy, Cholecystectomy Male Surgical History: Reports: Vasectomy Musculoskeletal Surgical History: Reports: Other (See Below) Other Musculoskeletal Surgeries/Procedures:: Left arm fx with surgical repair Social & Family History - Family History Family Medical History: No Pertinent Family History - Tobacco Use Tobacco Use Status *Q: Never Tobacco User - Caffeine Use Caffeine Use: Reports: Soda Other Caffeine Use: Diet Coke - Recreational Drug Use Recreational Drug Use: No ED ROS GENERAL - Review of Systems Review Of Systems: Comprehensive ROS is negative, except as noted in HPI. ED EXAM, GENERAL - Physical Exam Exam: See Below Free Text/Narrative:: My physical exam is in the HPI #1 Interpretation EKG Interpretation Comments: EKG done 10/21/2021 at 10:20 PM shows a sinus rhythm heart rate 85 WI 156 QT duration 428 axis [address] and T impression normal EKG was compared to 09/18/2021 and is no change except rate. Course - Vital Signs Last Recorded V/S: Last Vital Signs Temp 37.1 C 10/21/21 21:08 Pulse 90 10/21/21 21:08 Resp 18 10/21/21 21:08 BP 178/98 H 10/21/21 21:08 Pulse Ox 96 10/21/21 21:08 - Orders/Labs/Meds Orders: Active Orders 24 hr Category Date Time Status Sodium Chloride 0.9% [Normal Saline] 1,000 ml Med 10/21/21 22:15 Active IV ASDIRECTED Sodium Chloride 0.9% [Saline Flush] Med 10/21/21 22:05 Active 10 ml FLUSH ASDIRECTED PRN Sodium Chloride 0.9% [Saline Flush] Med 10/21/21 22:05 Active 2.5 ml FLUSH ASDIRECTED PRN Saline Lock Insert [OM.PC] Stat Oth 10/21/21 22:05 Ordered Medication Orders Sodium Chloride (Normal Saline) 1,000 mls @ 125 mls/hr IV ASDIRECTED LESLIE Last Admin: 10/21/21 22:29 Dose: 125 mls/hr Documented by: MIKHAIL Sodium Chloride (Sodium Chloride 0.9% 10 Ml Syringe) 10 ml FLUSH ASDIRECTED PRN PRN Reason: Keep Vein Open Last Admin: 10/21/21 22:30 Dose: 10 ml Documented by: MIKHAIL Sodium Chloride (Sodium Chloride 0.9% 2.5 Ml Syringe) 2.5 ml FLUSH ASDIRECTED PRN PRN Reason: Keep Vein Open Last Admin: 10/21/21 22:30 Dose: 2.5 ml Documented by: MIKHAIL Labs: Laboratory Tests 10/21/21 10/21/21 Range/Units 22:20 22:20 WBC 6.22 (4.0-11.0) K/uL RBC 4.62 (4.50-5.90) M/uL Hgb 13.5 (13.0-17.0) g/dL Hct 41.8 (38.0-50.0) % MCV 90.5 (80.0-98.0) fL MCH 29.2 (27.0-32.0) pg MCHC 32.3 (31.0-37.0) g/dL RDW Std Deviation 43.6 (28.0-62.0) fl RDW Coeff of Neva 13 (11.0-15.0) % Plt Count 300 (150-400) K/uL MPV 8.70 (7.40-12.00) fL Neut % (Auto) 59.8 (48.0-80.0) % Lymph % (Auto) 27.2 (16.0-40.0) % [place] % (Auto) 8.5 (0.0-15.0) % Eos % (Auto) 4.0 (0.0-7.0) % Baso % (Auto) 0.5 (0.0-1.5) % Neut # (Auto) 3.7 (1.4-5.7) K/uL Lymph # (Auto) 1.7 (0.6-2.4) K/uL [place] # (Auto) 0.5 (0.0-0.8) K/uL Eos # (Auto) 0.3 (0.0-0.7) K/uL Baso # (Auto) 0.0 (0.0-0.1) K/uL Nucleated RBC % 0.0 /100WBC Nucleated RBCs # 0 K/uL Sodium 140 (136-148) mmol/L Potassium 4.5 (3.5-5.1) mmol/L Chloride 106 (98-107) mmol/L Carbon Dioxide 22.5 (21.0-32.0) mmol/L BUN 15 (7.0-18.0) mg/dL Creatinine 1.2 (0.8-1.3) mg/dL Est Cr Clr Drug Dosing 79.04 mL/min Estimated GFR (MDRD) > 60.0 ml/min Glucose 108 H (74-106) mg/dL Calcium 9.7 (8.5-10.1) mg/dL Total Bilirubin 0.3 (0.2-1.0) mg/dL AST 24 (15-37) IU/L ALT 35 (14-63) IU/L Alkaline Phosphatase 66 (46-116) U/L Troponin I < 0.050 (0.000-0.056) ng/mL Total Protein 7.2 (6.4-8.2) g/dL Albumin 3.7 (3.4-5.0) g/dL Globulin 3.5 (2.6-4.0) g/dL Albumin/Globulin Ratio 1.1 (0.9-1.6) Meds: Medications Generic Name Dose Route Start Last Admin Trade Name Dandy PRN Reason Stop Dose Admin Sodium Chloride 1,000 mls @ 125 mls/hr 10/21/21 22:15 10/21/21 22:29 Normal Saline IV 125 mls/hr ASDIRECTED LESLIE Administration Sodium Chloride 10 ml 10/21/21 22:05 10/21/21 22:30 Sodium Chloride 0.9% 10 Ml Syringe FLUSH 10 ml ASDIRECTED PRN Administration Keep Vein Open Sodium Chloride 2.5 ml 10/21/21 22:05 10/21/21 22:30 Sodium Chloride 0.9% 2.5 Ml Syringe FLUSH 2.5 ml ASDIRECTED PRN Administration Keep Vein Open Discontinued Medications Generic Name Dose Route Start Last Admin Trade Name Dandy PRN Reason Stop Dose Admin Iopamidol 100 ml 10/21/21 23:15 10/21/21 23:20 Iopamidol 755 Mg/Ml 500 Ml Multipack Bottle IVPUSH 10/21/21 23:16 100 ml ONETIME ONE Administration Ketorolac Tromethamine 15 mg 10/21/21 22:05 10/21/21 22:29 Ketorolac 15 Mg/Ml Sdv IM 10/21/21 22:06 15 mg ONETIME ONE Administration Oxycodone/Acetaminophen 1 tab 10/22/21 00:35 Acetaminophen/Oxycodone 325-10 Mg Tab PO 10/22/21 00:36 ONETIME ONE - Re-Assessments/Exams Free Text/Narrative Re-Assessment/Exam: 10/21/21 22:09 Emergency department is back up and he was in the waiting room so I ordered a chest x-ray. That x-ray shows his infiltrate in right upper lobe is less consolidated there is a suspicious round 3 cm lesion in the right upper lobe that may be an area of focal consolidation, abscess, atypical pneumonia such as fungal, or mass. 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 Discussed with the emergency physician Dr. Fair and Ajay and he said he would recommend calling the patch worker in the morning and see when they want to follow him up in what they want to do for next work-up. Departure - Departure Time of Disposition: 00:37 Disposition: Home, Self-Care 01 Condition: Good Clinical Impression: Lung mass, Chest wall pain - Discharge Information Prescriptions: Acetaminophen/oxyCODONE [Percocet 325-10 MG] 1 tab PO Q4H PRN #24 tab PRN Reason: Pain (Severe 7-10) Instructions: Chest Wall Pain, [id number], Lung Mass Referrals: PCP,None [Primary Care Provider] - Forms: ED Department Discharge Additional Instructions: I will contact you during the day tomorrow and let you know what the pulmonolo gist says needs to be done next. The pain medicine can suffice his cough medicine as well. Drink plenty fluids because that is the best treatment for cough. [facility] [place] [facility] [address] [place] [id number] [place] [address] The following information is given to patients seen in the emergency department who are being discharged to home. This information is to outline your options for follow-up care. We provide all patients seen in our emergency department with a follow-up referral. The need for follow-up, as well as the timing and circumstances, are variable depending upon the specifics of your emergency department visit. If you don't have a primary care physician on staff, we will provide you with a referral. We always advise you to contact your personal physician following an emergency department visit to inform them of the circumstance of the visit and for follow-up with them and/or the need for any referrals to a consulting specialist. The emergency department will also refer you to a specialist when appropriate. This referral assures that you have the opportunity for follow-up care with a specialist. All of these measure are taken in an effort to provide you with optimal care, which includes your follow-up. Under all circumstances we always encourage you to contact your private physician who remains a resource for coordinating your care. When calling for follow-up care, please make the office aware that this follow-up is from your recent emergency room visit. If for any reason you are refused follow-up, please contact the [facility] Emergency Department at and asked to speak to the emergency department charge nurse. Sepsis Event Note (ED) - Evaluation Sepsis Screening Result: No Definite Risk - Focused Exam Vital Signs: Vital Signs Temp Pulse Resp BP Pulse Ox 10/21/21 21:08 37.1 C 90 18 178/98 H 96 - My Orders Last 24 Hours: My Active Orders 10/21/21 22:05 Sodium Chloride 0.9% [Saline Flush] 10 ml FLUSH ASDIRECTED PRN Sodium Chloride 0.9% [Saline Flush] 2.5 ml FLUSH ASDIRECTED PRN Saline Lock Insert [OM.PC] Stat 10/21/21 22:15 Sodium Chloride 0.9% [Normal Saline] 1,000 ml IV ASDIRECTED - Assessment/Plan Last 24 Hours: My Active Orders 10/21/21 22:05 Sodium Chloride 0.9% [Saline Flush] 10 ml FLUSH ASDIRECTED PRN Sodium Chloride 0.9% [Saline Flush] 2.5 ml FLUSH ASDIRECTED PRN Saline Lock Insert [OM.PC] Stat 10/21/21 22:15 Sodium Chloride 0.9% [Normal Saline] 1,000 ml IV ASDIRECTED
[2021-10-21] MEDS ORDERED: Sodium Chloride 0.9% 1,000 ML IV SCH (22:15)
--- NOTE | 2021-10-21 22:48 | CR ---
INDICATION: Recent treatment for pneumonia September, cough, heard pop on left side TECHNIQUE: PA and lateral views of the chest COMPARISON: PA and lateral chest radiographs 09/18/2021 FINDINGS/IMPRESSION: 1. Persistent airspace disease in the right upper lung with masslike fullness of the right pulmonary hilum. Further evaluation is recommended with contrast enhanced CT. 2. Nonenlarged cardiac silhouette. No evidence of pleural effusion or pneumothorax. 3. No thoracic osseous abnormality demonstrated. Dictated by Yue Blake MD @ 10/21/2021 10:47:40 PM (Electronically Signed)
[2021-10-21 22:52] LABS: BLOOD UREA NITROGEN,BUN 15 mg/dL (7.0-18.0); CARBON DIOXIDE,CO2 22.5 mmol/L (21.0-32.0); CHLORIDE,CL 106 mmol/L (98-107); GLUCOSE RANDOM 108 mg/dL (74-106); POTASSIUM,K 4.5 mmol/L (3.5-5.1); SODIUM,NA 140 mmol/L (136-148)
[2021-10-21] MEDS ORDERED: Iopamidol 755 MG/ML 500 ML Multipack Bottle IVPUSH ONE (23:15)
--- NOTE | 2021-10-22 00:14 | CT ---
INDICATION: Chest pain, abnormal x-ray TECHNIQUE: Contrast enhanced axial CT imaging through the chest. 100 mL Isovue 370 contrast agent was administered intravenously. Sagittal and coronal reconstructions are provided. COMPARISON: PA and lateral chest radiographs 10/21/2021 FINDINGS: There is a large irregular right hilar/suprahilar mass measuring approximately 9 x 6 x 6 cm in transverse, AP, and craniocaudal dimensions respectively. This is most consistent with primary malignancy. The superior margin of the mass abuts the major fissure. Additional 4 x 3 x 3 mass in the posterior lateral right upper lung is consistent with additional site of malignancy. There are several additional small nodules in the anterior right upper lobe measuring up to 10 mm. There is bulky mediastinal lymphadenopathy predominantly in the right paratracheal station and in the right pulmonary hilum, consistent with alfredo metastatic disease. No suspicious pulmonary nodules are identified in the right lower lobe or left lung. There is no pleural effusion. There is mass effect on the distal right main pulmonary artery and proximal lower branches due to encasement and compression by the primary mass. There is also encasement and compression of the main lobar bronchi with greater mass effect on the upper and middle lobe branches. Focal airspace consolidation with volume loss in the lateral segment of the right middle lobe most likely represents postobstructive atelectasis. There is no significant mass effect or encasement of the superior vena cava. The heart is not enlarged. There is no pericardial effusion. The main pulmonary artery and thoracic aorta demonstrate normal caliber. The thoracic osseous structures are unremarkable. No abnormality is demonstrated in the visualized upper abdomen. Cholecystectomy clips are noted. IMPRESSION: 1. Large irregular right hilar/suprahilar mass measuring approximately 9 x 6 x 6 cm, most consistent with primary malignancy. Additional 4 x 3 x 3 mass in the posterior lateral right upper lung is consistent with additional site of malignancy. Additional small nodules in the anterior right upper lobe, measuring up to 10 mm, are also compatible with tumor spread. 2. Bulky mediastinal lymphadenopathy predominantly in the right paratracheal station and then the right pulmonary hilum, consistent with alfredo metastatic disease. 3. Encasement and compression of the distal right main pulmonary artery and lobar branches and of the main lobar bronchi. Focal airspace consolidation with volume loss in the lateral segment right middle lobe most likely represents postobstructive atelectasis. Please note that all CT scans at this facility use dose modulation, iterative reconstruction, and/or weight-based dosing when appropriate to reduce radiation dose to as low as reasonably achievable. Dictated by Yue Blake MD @ 10/22/2021 12:12:01 AM (Electronically Signed)
[2021-10-22] MEDS ORDERED: Acetaminophen/oxyCODONE 325-10 MG Tab PO ONE (00:35)
[2021-10-22 01:02] VITALS: BP 128/71; PULSE 86
== END 2021-10-22 00:49 | disposition home or self-care (01) ==
LOC: MW.ED 19:44
DX: R07.89 Other chest pain (principal); R91.8 Other nonspecific abnormal finding of lung field; K21.9 Gastro-esophageal reflux disease without esophagitis; E66.9 Obesity, unspecified; Z68.33 Body mass index [BMI] 33.0-33.9, adult; Z79.899 Other long term (current) drug therapy
CPT/HCPCS: 36415; 71046; 71260; 80053; 84484; 85025; 93005; 96372; 99285; A9270; J1885; J7030; Q9967

== ENCOUNTER 2021-12-22 06:41 | Day surgery (SDC) | payer BC ==
[~2021-12-22 06:41] MED LIST changes: -Bupivacaine 0.25%/EPINEPHrine 1:200,000 10 ML SDV ONE; +Sodium Chloride 0.9% 10 ML Syringe FLUSH PRN; +Sodium Chloride 0.9% 2.5 ML Syringe FLUSH PRN; +Sodium Chloride 0.9% 20 ML SDV IV PRN
[2021-12-22] MEDS ORDERED: fentaNYL 100 MCG/2 ML SDV ONE (06:56)
[2021-12-22] MEDS ORDERED: Propofol 200 MG/20 ML SDV ONE (06:56)
[2021-12-22] MEDS ORDERED: Dexamethasone 4 MG/ML 5 ML MDV ONE (06:57)
[2021-12-22] MEDS ORDERED: Ondansetron 4 MG/2 ML SDV ONE (06:57)
[2021-12-22] MEDS ORDERED: Midazolam 1 MG/ML 2 ML SDV ONE (06:57)
[2021-12-22] MEDS ORDERED: Water For Injection, Sterile 20 ML ONE (07:05)
[2021-12-22] MEDS ORDERED: Bupivacaine 0.5% 10 ML SDV ONE (07:17)
[2021-12-22] MEDS ORDERED: Heparin Sodium 100 Units/ML 3 ML Syringe ONE (07:17)
[2021-12-22] MEDS ORDERED: Octyl 2-Cyanoacrylate 1 Tube ONE (07:17)
[2021-12-22] MEDS ORDERED: Iopamidol 408 MG/ML 20 ML SDV ONE (07:18)
[2021-12-22] MEDS ORDERED: Morphine 2 MG/ML SYRINGE IVPUSH PRN (07:24)
[2021-12-22] MEDS ORDERED: Naloxone 0.4 MG/ML SDV IVPUSH PRN (07:24)
[2021-12-22] MEDS ORDERED: Ondansetron 4 MG/2 ML SDV IVPUSH PRN (07:24)
[2021-12-22] MEDS ORDERED: fentaNYL 100 MCG/2 ML SDV IVPUSH PRN (07:24)
[2021-12-22] MEDS ORDERED: HYDROmorphone 1 MG/ML Syringe IVPUSH PRN (07:24)
[2021-12-22] MEDS ORDERED: Metoclopramide 10 MG/2 ML SDV IVPUSH PRN (07:24)
[2021-12-22] MEDS ORDERED: Albuterol 0.083% 2.5 MG/3 ML Neb Soln NEB PRN (07:24)
[2021-12-22] MEDS ORDERED: ceFAZolin 1 GM Vial ONE (08:18)
[2021-12-22] MEDS ORDERED: Ketorolac 30 MG/ML SDV ONE (08:48)
[2021-12-22 14:04] VITALS: BP 145/87; PULSE 70
== END 2021-12-22 10:15 | disposition home or self-care (01) ==
LOC: MW.SDS 06:41
PROVIDERS: ATTEND Surgery
DX: C34.11 Malignant neoplasm of upper lobe, right bronchus or lung (principal); E66.9 Obesity, unspecified; Z79.899 Other long term (current) drug therapy; Z90.49 Acquired absence of other specified parts of digestive tract; Z98.890 Other specified postprocedural states; Z87.891 Personal history of nicotine dependence; Z68.37 Body mass index [BMI] 37.0-37.9, adult
CPT/HCPCS: 36561; 71045; A9270; J0131; J0690; J1100; J1642; J1885; J2250; J2704; J3490; J7120; 00532; J2405; J3010; Q9966

== ENCOUNTER 2022-05-23 12:37 | Emergency (ER) | payer OTHER ==
[2022-05-23] MEDS: Sodium Chloride 0.9% 1,000 ML IV ONE (12:55)
[2022-05-23 13:36] LABS: CARBON DIOXIDE,CO2 26.1 mmol/L (21.0-32.0); POTASSIUM,K 3.9 mmol/L (3.5-5.1)
[2022-05-23 14:08] VITALS: PULSE 86
[2022-05-23] MEDS: Heparin Sodium 100 Units/ML 3 ML Syringe FLUSH STA (14:56)
[2022-05-23 14:59] VITALS: BP 114/76
== END 2022-05-23 15:00 | disposition home or self-care (01) ==
LOC: MW.ED 12:37
DX: R55 Syncope and collapse (principal); E66.9 Obesity, unspecified; Z68.41 Body mass index [BMI] 40.0-44.9, adult; Z20.822 Contact with and (suspected) exposure to COVID-19
CPT/HCPCS: 36415; 70450; 71045; 80053; 83605; 83735; 84484; 85025; 87635; 93005; 96360; 96361; 99285; J1642; J7030; 93010; 99283; U0002

== ENCOUNTER 2022-09-30 11:13 | Emergency (ER) | payer OTHER, BC ==
[2022-09-30] MEDS ORDERED: Sodium Chloride 0.9% 2.5 ML Syringe FLUSH PRN (11:41)
[2022-09-30] MEDS ORDERED: Sodium Chloride 0.9% 10 ML Syringe FLUSH PRN (11:41)
[2022-09-30] MEDS ORDERED: Sodium Chloride 0.9% 1,000 ML IV ONE ×2 (11:41)
[2022-09-30 13:11] LABS: CARBON DIOXIDE,CO2 24.9 mmol/L (21.0-32.0)
[2022-09-30 14:12] VITALS: BP 117/74; PULSE 102
== END 2022-09-30 14:12 | disposition home or self-care (01) ==
LOC: MW.ED 11:13
DX: E86.0 Dehydration (principal); E66.9 Obesity, unspecified; Z68.37 Body mass index [BMI] 37.0-37.9, adult; Z85.118 Personal history of other malignant neoplasm of bronchus and lung
CPT/HCPCS: 36415; 80053; 85025; 96360; 99284; J3490; J7030